=== PATIENT | female | born 1995 | race Caucasian/White ===

== ENCOUNTER 2017-08-07 17:24 | Emergency (ER) | payer OTHER ==
[~2017-08-07] VITALS: Ht 170.2 cm; Wt 132.7 kg
[2017-08-07 17:26] VITALS: TEMP 97.9
[2017-08-07] MEDS ORDERED: ZOLOFT 100MG100 MG PO (17:31)
[2017-08-07] MEDS ORDERED: ABILIFY5 MG (17:31)
[2017-08-07 18:33] LABS: PH 5 (5-8); SQUAMOUS EPITHELIAL 0-2 /hpf; URINE APPEARANCE Hazy; URINE BACTERIA None Seen /hpf; URINE BILIRUBIN Negative (NEGATIVE); URINE BLOOD Negative (NEGATIVE); URINE COLOR Yellow; URINE GLUCOSE Negative (NEGATIVE); URINE KETONE Negative (NEGATIVE); URINE RBC 0-2 /hpf; URINE UROBILINOGEN Negative (NEGATIVE); URINE WBC 0-2 /hpf
[2017-08-07 18:37] LABS: BASO # 0.1 (0.0-0.2); BASO % 0.7 % (0.0-2.0); EOS # 0.4 (0.0-0.7); GRAN # 7.6 (1.4-6.5); GRAN % 71.7 % (42.2-75.2); HEMATOCRIT 37.1 % (37.0-47.0); LYMPH # 1.9 (1.2-3.4); LYMPH % 18.1 % (20.0-51.0); MEAN CELL VOLUME 79 fl (80.0-100.0); MEAN CORPUSCULAR HEMOGLOBIN 25 pg (27.0-31.0); MEAN CORPUSCULAR HGB CONC 32 g/dl (33.0-37.0); MEAN PLATELET VOLUME 11.1 fl (7.4-10.4); MONO # 0.5 (0.1-0.6); MONO % 5.1 % (1.7-9.3); PLATELET COUNT 314 K/mm3 (130-400); RED BLOOD COUNT 4.72 M/mm3 (4.10-5.30); REDCELL DISTRIBUTION WIDTH-CV 16.3 % (11.5-14.5); WHITE BLOOD COUNT 10.5 K/mm3 (4.8-10.8)
[2017-08-07 18:38] LABS: HEMOGLOBIN 11.9 g/dl (12.5-16.0)
[2017-08-07 18:41] LABS: ADJUSTED CALCIUM 8.9 mg/dL (8.4-10.2); ALBUMIN 4.3 gm/dL (3.5-5.0); BILIRUBIN,TOTAL 0.5 mg/dL (0.0-1.0); CALCIUM 9.1 mg/dL (8.4-10.2); CREATININE, serum 0.7 mg/dL (0.52-1.25); POTASSIUM 3.5 mmol/L (3.4-5.0); TOTAL PROTEIN 7.6 gm/dL (6.4-8.2)
[2017-08-07 20:04] VITALS: BP 136/89; PULSE 93
[2017-08-07 23:38] LABS: CHLAMYDIA/TRACH by PCR Female NOT DETECTED; NEISSERIA GON by PCR Female NOT DETECTED
== END 2017-08-07 20:19 | disposition home or self-care (01) ==
LOC: COL.ER 17:24
PROVIDERS: Emergency Medicine
DX: R10.31 Right lower quadrant pain (principal); F32.9 Major depressive disorder, single episode, unspecified; Z90.89 Acquired absence of other organs; Z90.49 Acquired absence of other specified parts of digestive tract; Z98.890 Other specified postprocedural states
CPT/HCPCS: J1170; J2550; J7030